=== PATIENT | female | born 2000 | race Caucasian/White ===

== ENCOUNTER → 2023-01-09 | Outpatient (CLI) | payer OTHER ==
[2023-01-09 17:13] LABS: CREATININE, serum 0.82 mg/dL (0.57-1.11); POTASSIUM 3.8 mmol/L (3.5-4.5)
== END ==
LOC: COL.LAB 15:52
DX: Z79.899 Other long term (current) drug therapy (principal)

== ENCOUNTER → 2024-01-20 | Outpatient (CLI) | payer OTHER ==
[2024-01-20 10:01] LABS: CREATININE, serum 0.8 mg/dL (0.57-1.11); POTASSIUM 3.9 mEq/L (3.5-4.5)
== END ==
LOC: COL.LAB 08:57
PROVIDERS: Nurse Practitioner Family
DX: Z79.899 Other long term (current) drug therapy (principal)